=== PATIENT | male | born 1960 | race Caucasian/White ===

== ENCOUNTER 2019-08-29 11:06 | Inpatient (IN) | payer OTHER ==
[~2019-08-29] VITALS: Ht 190.5 cm; Wt 102.5 kg
[2019-08-29 11:54] LABS: Basophils # (auto) 0 10 ^3/uL (0-0.2); Basophils % (auto) 0.4 % (0.0-2.0); Eosinophils # (auto) 0.2 10 ^3/uL (0-0.8); Hematocrit 36.6 % (41.0-53.0); Hemoglobin 12.1 g/dL (13.5-17.5); Lymphocytes # (auto) 2.3 10 ^3/uL (0.4-5.4); Lymphocytes % (auto) 24.6 % (10.0-50.0); Mean Corpuscular Hemoglobin 28.9 pg (28.0-32.0); Mean Corpuscular Hgb Conc. 33.1 g/dL (32.0-36.0); Mean Corpuscular Volume 87.3 fL (80.0-100.0); Monocytes # (auto) 0.7 10 ^3/uL (0-1.3); Monocytes % (auto) 7.3 % (0.0-12.0); Neutrophils # (auto) 6.2 10 ^3/uL (1.6-8.6); Neutrophils % (auto) 65.7 % (37.0-80.0); Nucleated Red Blood Cells % 0.1 %; Platelet Count (auto) 270 10^3/uL (140-450); Red Cell Distribution Width 13.5 % (11.8-14.3); White Blood Cell 9.5 10^3/uL (4.4-10.8)
[2019-08-29 12:08] LABS: INR 1.05 (0.9-1.15); Partial Thromboplastin Time 28.8 sec (23.64-32.05)
[2019-08-29 12:29] LABS: Albumin 3.6 g/dL (3.4-5.0); Calcium 8.7 mg/dL (8.5-10.1); Potassium 4.9 mmol/L (3.5-5.1)
[2019-08-29 12:34] LABS: Bilirubin, Total 0.4 mg/dL (0.2-1.0); Total Protein 7.9 g/dL (6.4-8.2)
[2019-08-29] MEDS ORDERED: MORPHINE SULF INJ 2 MG/ML SYRINGE 1ML IV PRN ×3 (15:15→15:30)
[2019-08-29] MEDS ORDERED: NITROGLYCERIN 0.4 MG SL TAB SL PRN ×2 (15:15→15:30)
[2019-08-29] MEDS ORDERED: SODIUM CHLORIDE 0.9% 1,000 ML IV SCH (15:20)
[2019-08-29] MEDS ORDERED: VANCOMYCIN PER PHARMACY 0 MG IV SCH (15:30)
[2019-08-29] MEDS ORDERED: DOCUSATE SOD 100 MG CAP PO PRN (15:30)
[2019-08-29] MEDS ORDERED: LORazepam 0.5 MG TAB PO PRN (15:30)
[2019-08-29] MEDS ORDERED: LACTATED RINGER S IV ONE (15:30)
[2019-08-29] MEDS ORDERED: PIPERACILLIN-TAZOB 3.375GM 100 ML IV ONE (15:30)
[2019-08-29] MEDS ORDERED: DEXTROSE (50%) 50ML SYRG IV PRN (15:30)
[2019-08-29] MEDS ORDERED: HYDROcodone-ACET 5/325MG TAB PO PRN (15:30)
[2019-08-29] MEDS ORDERED: ALUM & MAG HYDROX-SIMETH LIQ(MAALOX) 30 ML PO PRN (15:30)
[2019-08-29] MEDS ORDERED: METOCLOPRAMIDE HCL 5MG/ml INJ 2ml VIAL IV PRN ×2 (15:30→16:00)
[2019-08-29] MEDS ORDERED: GABAPENTIN 100 MG CAP PO ONE (15:45)
[2019-08-29] MEDS ORDERED: LISINOPRIL 10 MG TAB PO ONE (15:45)
[2019-08-29] MEDS: PIPERACILLIN-TAZOB 2.25GM 50 ML IV SCH (16:14)
[2019-08-29] MEDS: ACCU-CHEK COMFORT CURVE STRIP VI SCH ×2 (16:46→22:10)
[2019-08-29] MEDS: InsuLIN REG 1unit/0.01ml Soln (100units/ml) SC SCH (16:46)
[2019-08-29] MEDS: SODIUM CHLORIDE 0.9% 1,000 ML IV SCH (17:07)
[2019-08-29 17:28] VITALS: BP 133/67
--- NOTE | 2019-08-29 17:28 | NUR ---
Telemetry admit from [facility] admitted to Telemetry unit after SBAR received. Patient oriented to YUSUF MARCOS RN primary RN, unit, room, bed, and unit policies regarding patient care and visiting hours. Patient now on continuous telemetry monitoring, tele box # [id number]. Patient weighed by bedscale and encouraged to call if they need something. All questions and concerns addressed, patient verbalized understanding.
[2019-08-29 18:32] LABS: Cholesterol 100 mg/dL (< 200); HDL Cholesterol 25 mg/dL (40-59); LDL Cholesterol 54 mg/dL (< 100); Triglycerides 222 mg/dL (< 150)
[2019-08-29] MEDS: VANCOMYCIN 1GM/250ML 250 ML IV SCH (18:37)
--- NOTE | 2019-08-29 19:30 | NUR ---
OPENING NOTE Received report from day shift RN. Patient is A&O X's 4 with no s/s of distress and reports no pain. Educated patient on POC and to use call light when in need of assistance. Patient verbalized understanding. Bed is in lowest/locked position with side rails up X's 2 and call light is within reach of patient. Patient has knee walker at bedside to help with ambulating. Patient demonstrated steady and proper use. At this time, bandage to right foot was changed/reinforced. Patient is aware he is NPO at midnight. Will continue care.
--- NOTE | 2019-08-29 19:30 | NUR ---
Closing Shift Note Patient resting in bed. No distress noted. Report given. Will endorse care to the night auditor RN.
[2019-08-29] MEDS ORDERED: METF-370 PO (20:04)
[2019-08-29] MEDS ORDERED: GLIP10TA9 BC (20:04)
[2019-08-29] MEDS ORDERED: ATOR10TA52 PO (20:04)
[2019-08-29] MEDS ORDERED: LISI-275 PO (20:04)
[2019-08-29 22:00] VITALS: BP 117/60
[2019-08-29] MEDS ORDERED: INSULIN LANTUS (GLARGINE) 1 /0.01ml (100units/ml) SC SCH (22:00)
[2019-08-29] MEDS ORDERED: ATORVASTATIN 20 MG TAB PO SCH (22:00)
[2019-08-29] MEDS ORDERED: InsuLIN REG 1unit/0.01ml Soln (100units/ml) SC SCH (22:00)
[2019-08-29] MEDS: GABAPENTIN 300 MG CAP PO SCH (22:09)
[2019-08-30] MEDS: PIPERACILLIN-TAZOB 2.25GM 50 ML IV SCH ×2 (00:14→06:11)
--- NOTE | 2019-08-30 03:40 | NUR ---
Urine sample obtained. Sent to lab.
--- NOTE | 2019-08-30 03:40 | NUR ---
COVID swab obtained. Taken to lab
[2019-08-30 04:15] LABS: Urine WBC None Seen /hpf (0 - 3)
[2019-08-30 04:25] LABS: Urine Bacteria NONE SEEN /hpf (None Seen); Urine Blood Negative /uL (Negative); Urine Specific Gravity 1.013 (1.001-1.035)
[2019-08-30 04:38] LABS: Alcohol, Urine < 3.0 mg/dL (0-5); Amphetamine Screen, Urine NEGATIVE (NEGATIVE); Barbiturate Scree,Urine NEGATIVE (NEGATIVE); Benzodiazephine Screen, Urine NEGATIVE (NEGATIVE); Cannabinoid Screen, Urine NEGATIVE (NEGATIVE); Cocaine Screen, Urine NEGATIVE (NEGATIVE); Opiate Scree,Urine NEGATIVE (NEGATIVE); Phencyclidine Screen, Urine NEGATIVE (NEGATIVE)
[2019-08-30 05:00] VITALS: BP 109/60
[2019-08-30] MEDS: GABAPENTIN 300 MG CAP PO SCH ×2 (06:00→14:00)
[2019-08-30] MEDS: SODIUM CHLORIDE 0.9% 1,000 ML IV SCH ×2 (06:11→11:45)
[2019-08-30] MEDS: VANCOMYCIN 1GM/250ML 250 ML IV SCH ×2 (06:11→18:45)
[2019-08-30] MEDS: InsuLIN REG 1unit/0.01ml Soln (100units/ml) SC SCH ×3 (06:12→18:44)
[2019-08-30] MEDS: ACCU-CHEK COMFORT CURVE STRIP VI SCH ×3 (06:12→18:43)
[2019-08-30 06:20] LABS: Basophils # (auto) 0 10 ^3/uL (0-0.2); Basophils % (auto) 0.5 % (0.0-2.0); Eosinophils # (auto) 0.1 10 ^3/uL (0-0.8); Eosinophils % (auto) 2.1 % (0.0-7.0); Hematocrit 34.5 % (41.0-53.0); Hemoglobin 11.7 g/dL (13.5-17.5); Lymphocytes # (auto) 1.4 10 ^3/uL (0.4-5.4); Lymphocytes % (auto) 19.4 % (10.0-50.0); Mean Corpuscular Hemoglobin 29.4 pg (28.0-32.0); Mean Corpuscular Hgb Conc. 33.9 g/dL (32.0-36.0); Mean Corpuscular Volume 86.7 fL (80.0-100.0); Monocytes # (auto) 0.5 10 ^3/uL (0-1.3); Neutrophils # (auto) 5.1 10 ^3/uL (1.6-8.6); Platelet Count (auto) 229 10^3/uL (140-450); Red Blood Cells 3.97 10^6/uL (4.5-5.90); Red Cell Distribution Width 13.5 % (11.8-14.3); White Blood Cell 7.1 10^3/uL (4.4-10.8)
[2019-08-30 06:34] LABS: INR 1.07 (0.9-1.15); Partial Thromboplastin Time 28.2 sec (23.64-32.05)
[2019-08-30 06:39] LABS: Albumin 3.3 g/dL (3.4-5.0); Calcium 8.7 mg/dL (8.5-10.1); Magnesium 1.8 mg/dL (1.6-2.6); Potassium 4.7 mmol/L (3.5-5.1)
[2019-08-30 06:46] LABS: BUN/Creatinine Ratio 27.3; Bilirubin, Total 0.4 mg/dL (0.2-1.0); Phosphorus 3.1 mg/dL (2.5-4.90); Total Protein 7.2 g/dL (6.4-8.2)
--- NOTE | 2019-08-30 07:30 | NUR ---
Opening Shift Note Assumed care of patient, awake and alert. NPO for procedure. No S/S of distress/SOB or pain. Instructed on POC and to call for assist PRN, will continue to monitor for changes Q1hr and PRN.
[2019-08-30 09:00] VITALS: BP 112/88
[2019-08-30] MEDS ORDERED: LISINOPRIL 10 MG TAB PO SCH (10:00)
[2019-08-30] MEDS ORDERED: ENOXAPARIN SOD 40 MG/0.4 ML SYRINGE SC SCH (10:00)
[2019-08-30] MEDS ORDERED: ASPirin 81 mg TAB PO SCH (10:00)
--- NOTE | 2019-08-30 10:33 | NUR ---
WOUND CARE NOTE: Wound care in to see patient per wound care request regarding "R Foot wound". Bedside nurse took photograph of patient's wound upon admission for reference. Patient is 58 years old male with admitting diagnosis of Non healing wound of the Rt Foot. Patient with history of DM, High Lipids. Patient's nurse FRANCINE Gandhi, no need to be see patient at patient's R foot is wrapped and just awaiting call from [facility].R. "any time now" for scheduled I&D and Debridement of patient's Rt Foot wound by Dr. Lopes. She added that patient is awake, alert and oriented, self turning and repositioning and his Cisco score is 19. No further wound care monitoring needed at this time unless MD wants wound care to continue care. RECOMMENDATION:Follow surgeon's/java programmer analyst dressing order post op. Addendum: 08/30/19 at 1507 by Shakila Matthews RN Amended: Links added.
[2019-08-30] MEDS ORDERED: BUPIVACAINE HCL 50 ML ONE (12:15)
[2019-08-30] MEDS ORDERED: MIDAZOLAM HCL 1MG/1ML-2 ML VIAL ONE (12:48)
[2019-08-30] MEDS ORDERED: fentaNYL CITRATE 100 MCG/2 ML VL ONE (12:48)
[2019-08-30] MEDS ORDERED: ONDANSETRON HCL 4 MG/2 ML VIAL IV PRN (13:00)
[2019-08-30] MEDS ORDERED: ePHEDrine SULFATE 50 MG/ML AMP IV PRN (13:00)
[2019-08-30] MEDS ORDERED: hydrALAZINE HCL 20 MG/ML VL IV PRN (13:00)
[2019-08-30] MEDS ORDERED: fentaNYL CITRATE 100 MCG/2 ML VL IV PRN (13:00)
[2019-08-30] MEDS ORDERED: PROPOFOL 10 MG/ML 20 ML IV ONE (13:24)
[2019-08-30 17:00] VITALS: BP 121/70
[2019-08-30] MEDS ORDERED: PIPERACILLIN-TAZOB 3.375GM 100 ML IV SCH (18:00)
--- NOTE | 2019-08-30 19:20 | NUR ---
Opening shift note Assumed care of patient. Patient A&Ox4, respirations even and non-labored with no s/s of distress. Discussed POC and up-coming discharge, patient verbalized understanding. IV flushed, patent, and intact. Bed lowered/locked with 2 side rails up, call light within reach. Will continue to monitor.
--- NOTE | 2019-08-30 19:30 | NUR ---
Received patient, alert/oriented, respirations even and unlabored. Dressing to right foot dry and intact, no drainage noted. Noted no complains of pain to the right foot at this time and patient willing to go home tonight. Pending discharge order noted. Per patient, his will come pick him up
[2019-08-30 20:38] VITALS: BP 125/68
== END 2019-08-30 21:00 | disposition home or self-care (01) | DRG 349 ==
LOC: ER 11:06 → TELE 11:07 → TELE-WESTW 17:28
PROVIDERS: ADMIT Hospitalist; ATTEND Hospitalist
PROC: 0JBQ0ZZ Excision of Right Foot Subcutaneous Tissue and Fascia, Open Approach (ICD-10-PCS; principal; 2019-08-30 12:40)
DX: T87.43 Infection of amputation stump, right lower extremity (principal); N17.0 Acute kidney failure with tubular necrosis; E11.21 Type 2 diabetes mellitus with diabetic nephropathy; E11.42 Type 2 diabetes mellitus with diabetic polyneuropathy; E11.621 Type 2 diabetes mellitus with foot ulcer; Y83.8 Other surgical procedures as the cause of abnormal reaction of the patient, or of later complication, without mention of misadventure at the time of the procedure; L97.519 Non-pressure chronic ulcer of other part of right foot with unspecified severity; S91.301A Unspecified open wound, right foot, initial encounter; E11.65 Type 2 diabetes mellitus with hyperglycemia; L08.9 Local infection of the skin and subcutaneous tissue, unspecified; D63.8 Anemia in other chronic diseases classified elsewhere; E66.9 Obesity, unspecified; E78.5 Hyperlipidemia, unspecified; F12.10 Cannabis abuse, uncomplicated; F17.200 Nicotine dependence, unspecified, uncomplicated; Z79.84 Long term (current) use of oral hypoglycemic drugs; Z91.19 Patient's noncompliance with other medical treatment and regimen; Z68.28 Body mass index [BMI] 28.0-28.9, adult; E11.22 Type 2 diabetes mellitus with diabetic chronic kidney disease; I12.9 Hypertensive chronic kidney disease with stage 1 through stage 4 chronic kidney disease, or unspecified chronic kidney disease; N18.9 Chronic kidney disease, unspecified
CPT/HCPCS: 36415; 71046; 80053; 80061; 80307; 81001; 82962; 83036; 83735; 84100; 84484; 85025; 85610; 85730; 86850; 86900; 86901; 87070; 87075; 87081; 87086; 87205; 93005; 93306; 93926; 96365; G0378; J1815; J2250; J2543; J2704; J3490